=== PATIENT | male | born 1970 | race Caucasian/White ===

== ENCOUNTER → 2016-11-14 | Outpatient (CLI) | payer OTHER ==
[~2016-11-14] MED LIST: AMOXICILLIN500 MG PO; BACTRIM DS 8001 TA1 PO; CLINDAMYCIN HC300 MG PO; FLEXERIL5 MG PO; HYDROCODONE BIT1 T11 PO; MOTRIN800 MG PO; NAPROSYN500 MG PO; NKHM; NORCO 325 MG-51 TAB PO; ROBITUSSIN; ROBITUSSIN AC 10 MG/ PO; ULTRAM50 MG PO; VICODIN ES 7501 TAB PO; ZOFRAN ODT4 MG SL; Zofran4 MG PO
== END | disposition home or self-care (01) ==
LOC: MRI 07:00
DX: Z13.5 Encounter for screening for eye and ear disorders (principal); M22.42 Chondromalacia patellae, left knee; M25.562 Pain in left knee; M70.42 Prepatellar bursitis, left knee

== ENCOUNTER → 2016-12-13 | Outpatient (CLI) | payer OTHER ==
[2016-12-13 19:00] LABS: BASO # 0.1 10*3/uL (0.0-0.1); BASO % 0.7 % (0.0-1.0); EOS # 0.3 10*3/uL (0.0-0.4); EOS % 3.5 % (1.0-4.0); HEMATOCRIT 44.7 % (42.0-52.0); HEMOGLOBIN 14.9 g/dl (14.0-18.0); LYMPH # 2.6 10*3/uL (1.3-4.4); LYMPH % 33.9 % (27.0-41.0); MEAN CELL VOLUME 90.7 fl (80.0-94.0); MEAN CORPUSCULAR HGB 30.2 pg (27.0-31.0); MEAN CORPUSCULAR HGB CONC 33.3 g/dl (33.0-37.0); MEAN PLATELET VOLUME 10.6 fl (9.6-12.3); MONO # 0.5 10*3/uL (0.1-1.0); MONO % 6.8 % (3.0-9.0); NEUT # 4.2 10*3/uL (2.3-7.9); NEUT % 54.8 % (47.0-73.0); PLATELET COUNT AUTOMATED 212 10*3/uL (130-400); RED BLOOD COUNT 4.93 10*6/uL (4.50-5.90); RED CELL DISTRI WIDTH 13.1 % (0-14.5); WHITE BLOOD COUNT 7.6 10*3/uL (4.8-10.8)
[2016-12-13 19:28] LABS: ALBUMIN 4.2 gm/dl (3.1-4.5); BILIRUBIN, TOTAL 0.4 mg/dl (0.2-1.0); POTASSIUM 4.2 mmol/L (3.5-5.1); TOTAL PROTEIN 7.5 gm/dL (6.4-8.2)
== END | disposition home or self-care (01) ==
LOC: LAB 18:18
PROVIDERS: Family Medicine
DX: Z01.818 Encounter for other preprocedural examination (principal); S83.512A Sprain of anterior cruciate ligament of left knee, initial encounter; Z71.6 Tobacco abuse counseling; Z87.891 Personal history of nicotine dependence; X58.XXXA Exposure to other specified factors, initial encounter; Y93.89 Activity, other specified; Y92.89 Other specified places as the place of occurrence of the external cause; Y99.8 Other external cause status

== ENCOUNTER 2018-06-14 15:09 | Emergency (ER) | payer SELFPAY ==
[~2018-06-14] VITALS: Ht 182.8 cm; Wt 102.1 kg
[2018-06-14] MEDS ORDERED: PENICILLIN VK500 MG PO (15:19)
[2018-06-14] MEDS ORDERED: NAPROSYN500 MG PO (15:19)
[2018-06-14] MEDS ORDERED: ZOFRAN4 MG PO (15:19)
[2018-06-14] MEDS ORDERED: Peridex 473 ML473 ML PO (15:19)
== END 2018-06-14 15:27 | disposition home or self-care (01) ==
LOC: ED 15:09
DX: K08.89 Other specified disorders of teeth and supporting structures (principal); R03.0 Elevated blood-pressure reading, without diagnosis of hypertension; F17.200 Nicotine dependence, unspecified, uncomplicated; Z88.1 Allergy status to other antibiotic agents

== ENCOUNTER 2018-11-09 10:15 | Emergency (ER) | payer SELFPAY ==
[~2018-11-09] VITALS: Wt 105.2 kg
[~2018-11-09 10:15] MED LIST changes: +PENICILLIN VK500 MG PO; +Peridex 473 ML473 ML PO; +ZOFRAN4 MG PO
[2018-11-09] MEDS ORDERED: NAPROSYN500 MG PO (11:16)
[2018-12-14] MEDS ORDERED: AMOXICILLIN500 M2 PO (13:23)
[2019-01-25] MEDS ORDERED: PENICILLIN-VK500 MG PO (11:11)
[2019-01-25] MEDS ORDERED: NAPROSYN500 MG PO (11:11)
== END 2018-11-09 11:25 | disposition home or self-care (01) ==
LOC: ED 10:15
DX: S86.912A Strain of unspecified muscle(s) and tendon(s) at lower leg level, left leg, initial encounter (principal); Z88.1 Allergy status to other antibiotic agents; X58.XXXA Exposure to other specified factors, initial encounter; Y93.01 Activity, walking, marching and hiking; Y92.89 Other specified places as the place of occurrence of the external cause; Y99.8 Other external cause status

== ENCOUNTER 2020-02-23 08:29 | Emergency (ER) | payer SELFPAY ==
[~2020-02-23] VITALS: Ht 182.8 cm; Wt 99.8 kg
[~2020-02-23 08:29] MED LIST changes: +AMOXICILLIN500 M2 PO; +PENICILLIN-VK500 MG PO
[2020-02-23] MEDS ORDERED: PRILOSEC20 M1 PO (09:56)
== END 2020-02-23 10:02 | disposition home or self-care (01) ==
LOC: ED 08:29
DX: K29.70 Gastritis, unspecified, without bleeding (principal); K21.9 Gastro-esophageal reflux disease without esophagitis; F17.200 Nicotine dependence, unspecified, uncomplicated; Z88.8 Allergy status to other drugs, medicaments and biological substances

== ENCOUNTER 2020-05-01 13:27 | Emergency (ER) | payer SELFPAY ==
[~2020-05-01] VITALS: Ht 182.8 cm; Wt 99.8 kg
[~2020-05-01 13:27] MED LIST changes: +PRILOSEC20 M1 PO
[2020-05-01 14:14] LABS: BASO % 0.4 % (0.0-1.0); EOS % 0.4 % (1.0-4.0); HEMATOCRIT 44.3 % (42.0-52.0); LYMPH # 0.9 10*3/uL (1.3-4.4); LYMPH % 9.4 % (27.0-41.0); MEAN CELL VOLUME 90.2 fl (80.0-94.0); MEAN CORPUSCULAR HGB 30.3 pg (27.0-31.0); MEAN CORPUSCULAR HGB CONC 33.6 g/dl (33.0-37.0); MEAN PLATELET VOLUME 10.8 fl (9.6-12.3); MONO % 9.9 % (3.0-9.0); NEUT # 7.9 10*3/uL (2.3-7.9); NEUT % 79.3 % (47.0-73.0); PLATELET COUNT AUTOMATED 167 10*3/uL (130-400); RED BLOOD COUNT 4.91 10*6/uL (4.50-5.90); RED CELL DISTRI WIDTH 13.3 % (0-14.5)
[2020-05-01 14:28] LABS: ALBUMIN 3.9 gm/dl (3.1-4.5); ALKALINE PHOSPHATASE 82 U/L (45-117); BUN 14 mg/dl (7-24); CHLORIDE 105 mmol/L (98-107); CREATININE 1.32 mg/dL (0.70-1.30); SGOT/AST 15 IU/L (3-35); SGPT/ALT 37 U/L (12-78); SODIUM 134 mmol/L (136-145); TOTAL PROTEIN 7.9 gm/dL (6.4-8.2)
[2020-05-01] MEDS ORDERED: VALTREX1000 MG PO ×2 (14:51)
[2020-05-01] MEDS ORDERED: CEPHALEXIN500 M1 PO ×2 (14:51)
[2020-05-01] MEDS ORDERED: TYLENOL325 M1 PO ×2 (14:51)
[2020-05-01] MEDS ORDERED: NAPROSYN500 MG PO ×2 (14:51)
== END 2020-05-01 15:24 | disposition home or self-care (01) ==
LOC: ED 13:27
PROVIDERS: Emergency Medicine
DX: B02.9 Zoster without complications (principal); Z88.8 Allergy status to other drugs, medicaments and biological substances; Z79.899 Other long term (current) drug therapy

== ENCOUNTER 2020-05-02 16:03 | Observation (INO) | payer SELFPAY ==
[~2020-05-02] VITALS: Ht 182.8 cm; Wt 101.2 kg
[~2020-05-02 16:03] MED LIST changes: +CEPHALEXIN500 M1 PO; +TYLENOL325 M1 PO; +VALTREX1000 MG PO
[2020-05-02 16:10] VITALS: BP 132/66
[2020-05-02 17:02] LABS: BASO % 0.3 % (0.0-1.0); EOS # 0.1 10*3/uL (0.0-0.4); EOS % 1.6 % (1.0-4.0); HEMATOCRIT 41.9 % (42.0-52.0); LYMPH # 1.1 10*3/uL (1.3-4.4); MEAN CELL VOLUME 92.1 fl (80.0-94.0); MEAN CORPUSCULAR HGB 30.1 pg (27.0-31.0); MEAN CORPUSCULAR HGB CONC 32.7 g/dl (33.0-37.0); MEAN PLATELET VOLUME 10.4 fl (9.6-12.3); MONO # 0.8 10*3/uL (0.1-1.0); MONO % 11.8 % (3.0-9.0); NEUT % 70.7 % (47.0-73.0); PLATELET COUNT AUTOMATED 152 10*3/uL (130-400); RED BLOOD COUNT 4.55 10*6/uL (4.50-5.90); RED CELL DISTRI WIDTH 13.4 % (0-14.5)
[2020-05-02 17:25] LABS: ALBUMIN 3.6 gm/dl (3.1-4.5); ALKALINE PHOSPHATASE 78 U/L (45-117); BUN 14 mg/dl (7-24); CHLORIDE 107 mmol/L (98-107); CREATININE 1.18 mg/dL (0.70-1.30); SGOT/AST 17 IU/L (3-35); SGPT/ALT 41 U/L (12-78); SODIUM 138 mmol/L (136-145); TOTAL PROTEIN 7.2 gm/dL (6.4-8.2)
[2020-05-02 17:27] LABS: TROPONIN I < 0.015 ng/ml (<0.045)
[2020-05-02 18:01] LABS: BILIRUBIN Negative (Negative); BLOOD Negative (Negative); CLARITY Clear (Clear); COLOR Yellow (Yellow); GLUCOSE Negative (Negative); KETONE Negative (Negative); LEUKO ESTERASE Negative (Negative); NITRITE Negative (Negative); SPECIFIC GRAVITY 1.015 (1.001-1.030)
[2020-05-02 18:10] LABS: EPITHELIAL CELLS 0-2; RBC 0-2 rbc/hpf (0-2)
[2020-05-02 21:35] VITALS: BP 138/83
[2020-05-03] VITALS: BP 122/58
[2020-05-03 06:55] LABS: BASO % 0.3 % (0.0-1.0); EOS # 0.2 10*3/uL (0.0-0.4); EOS % 3.3 % (1.0-4.0); LYMPH # 1.6 10*3/uL (1.3-4.4); MEAN CELL VOLUME 90.7 fl (80.0-94.0); MEAN CORPUSCULAR HGB 29.9 pg (27.0-31.0); MEAN CORPUSCULAR HGB CONC 32.9 g/dl (33.0-37.0); MEAN PLATELET VOLUME 11.3 fl (9.6-12.3); MONO # 0.9 10*3/uL (0.1-1.0); NEUT # 3.8 10*3/uL (2.3-7.9); NEUT % 57.9 % (47.0-73.0); PLATELET COUNT AUTOMATED 155 10*3/uL (130-400); RED BLOOD COUNT 4.52 10*6/uL (4.50-5.90); RED CELL DISTRI WIDTH 13.6 % (0-14.5); WHITE BLOOD COUNT 6.6 10*3/uL (4.8-10.8)
[2020-05-03 07:01] LABS: ACT PARTIAL THROMBO TIME 27.8 SECONDS (20.0-32.1)
[2020-05-03 07:05] LABS: ALBUMIN 3.2 gm/dl (3.1-4.5); ALKALINE PHOSPHATASE 70 U/L (45-117); BUN 14 mg/dl (7-24); CHLORIDE 109 mmol/L (98-107); CHOLESTEROL 130 mg/dL (<200); CREATININE 1.18 mg/dL (0.70-1.30); FREE T4 1.05 ng/dl (0.76-1.46); HDL CHOLESTEROL 19 mg/dl (40-60); LDL CHOLESTEROL 71 mg/dL (9-159); POTASSIUM 3.8 mmol/L (3.5-5.1); SGOT/AST 27 IU/L (3-35); SGPT/ALT 40 U/L (12-78); SODIUM 138 mmol/L (136-145); TOTAL PROTEIN 6.7 gm/dL (6.4-8.2); TRIGLYCERIDES 201 mg/dl (<150); VLDL CHOLESTEROL 40 mg/dL (6-40)
[2020-05-03 07:40] LABS: VITAMIN D, 25-HYDROXY 21.6 ng/mL (30-100)
[2020-05-03 08:00] VITALS: BP 133/72
[2020-05-03 12:00] VITALS: BP 136/70
[2020-05-03 16:00] VITALS: BP 141/76
[2020-05-03 20:00] VITALS: BP 121/65
[2020-05-04] VITALS: BP 145/74
[2020-05-04 08:00] VITALS: BP 132/58
[2020-05-04 12:00] VITALS: BP 128/67
[2020-05-04] MEDS ORDERED: NATURE'S BLEND F1 MG PO (12:57)
[2020-05-04] MEDS ORDERED: VITAMIN D350 MC2 PO (12:57)
[2020-05-04] MEDS ORDERED: DOXYCYCLINE100 M3 PO (12:57)
== END 2020-05-04 14:48 | disposition home or self-care (01) ==
LOC: ED 16:03 → EDHOLD 19:20 → 5E 20:50
PROVIDERS: Internal Medicine; Nurse Practitioner; ADMIT Internal Medicine; ATTEND Internal Medicine
DX: L73.9 Follicular disorder, unspecified (principal); R41.3 Other amnesia; R07.89 Other chest pain; F41.9 Anxiety disorder, unspecified; R42 Dizziness and giddiness; E83.41 Hypermagnesemia; D64.9 Anemia, unspecified; D72.810 Lymphocytopenia; L03.811 Cellulitis of head [any part, except face]; F17.210 Nicotine dependence, cigarettes, uncomplicated

== ENCOUNTER 2021-04-06 16:26 | Emergency (ER) | payer SELFPAY ==
[~2021-04-06 16:26] MED LIST changes: +DOXYCYCLINE100 M3 PO; +NATURE'S BLEND F1 MG PO; +VITAMIN D350 MC2 PO
[2021-04-06] MEDS ORDERED: AUGMENTIN 875875 MG PO (19:17)
[2021-04-06] MEDS ORDERED: FLONASE ALLERG9.9 ML NAS (19:17)
== END 2021-04-06 19:30 | disposition home or self-care (01) ==
LOC: ED 16:26
DX: J32.9 Chronic sinusitis, unspecified (principal); F17.200 Nicotine dependence, unspecified, uncomplicated; Z98.890 Other specified postprocedural states; Z79.899 Other long term (current) drug therapy; Z88.1 Allergy status to other antibiotic agents

== ENCOUNTER 2022-02-16 09:05 | Emergency (ER) | payer SELFPAY ==
[~2022-02-16] VITALS: Ht 182.8 cm; Wt 99.3 kg
[~2022-02-16 09:05] MED LIST changes: +AUGMENTIN 875875 MG PO; +FLONASE ALLERG9.9 ML NAS
[2022-02-16] MEDS ORDERED: Ondansetron4 MG PO (09:33)
[2022-02-16 09:41] LABS: BASO % 0.5 % (0.0-1.0); EOS # 0.3 10*3/uL (0.0-0.4); HEMATOCRIT 44.6 % (42.0-52.0); LYMPH # 2.2 10*3/uL (1.3-4.4); LYMPH % 30.2 % (27.0-41.0); MEAN CELL VOLUME 90.8 fl (80.0-94.0); MEAN CORPUSCULAR HGB 30.3 pg (27.0-31.0); MEAN CORPUSCULAR HGB CONC 33.4 g/dl (33.0-37.0); MEAN PLATELET VOLUME 10.8 fl (9.6-12.3); MONO # 0.8 10*3/uL (0.1-1.0); MONO % 10.5 % (3.0-9.0); NEUT % 54.5 % (47.0-73.0); PLATELET COUNT AUTOMATED 187 10*3/uL (130-400); RED BLOOD COUNT 4.91 10*6/uL (4.50-5.90); RED CELL DISTRI WIDTH 13.2 % (0-14.5); WHITE BLOOD COUNT 7.4 10*3/uL (4.8-10.8)
[2022-02-16 10:00] LABS: ALKALINE PHOSPHATASE 113 U/L (45-117); BUN 16 mg/dl (7-24); CHLORIDE 108 mmol/L (98-107); CREATININE 1.29 mg/dL (0.70-1.30); LIPASE 814 U/L (73-393); SGOT/AST 18 IU/L (3-35); SGPT/ALT 23 U/L (12-78); SODIUM 141 mmol/L (136-145); TOTAL PROTEIN 6.8 gm/dL (6.4-8.2)
== END 2022-02-16 11:15 | disposition home or self-care (01) ==
LOC: ED 09:05
PROVIDERS: Emergency Medicine
DX: R11.2 Nausea with vomiting, unspecified (principal); R19.7 Diarrhea, unspecified; Z88.1 Allergy status to other antibiotic agents; Z98.890 Other specified postprocedural states

== ENCOUNTER 2022-02-19 10:02 | Emergency (ER) | payer SELFPAY ==
[~2022-02-19] VITALS: Ht 182.8 cm; Wt 99.3 kg
[~2022-02-19 10:02] MED LIST changes: +Ondansetron4 MG PO
[2022-02-19 11:02] LABS: BASO # 0.1 10*3/uL (0.0-0.1); BASO % 0.7 % (0.0-1.0); EOS # 0.4 10*3/uL (0.0-0.4); EOS % 4.8 % (1.0-4.0); HEMATOCRIT 46.1 % (42.0-52.0); LYMPH % 27.2 % (27.0-41.0); MEAN CELL VOLUME 89.7 fl (80.0-94.0); MEAN CORPUSCULAR HGB 30.2 pg (27.0-31.0); MEAN CORPUSCULAR HGB CONC 33.6 g/dl (33.0-37.0); MEAN PLATELET VOLUME 10.8 fl (9.6-12.3); MONO # 0.7 10*3/uL (0.1-1.0); MONO % 10.1 % (3.0-9.0); NEUT # 4.2 10*3/uL (2.3-7.9); NEUT % 56.9 % (47.0-73.0); PLATELET COUNT AUTOMATED 192 10*3/uL (130-400); RED BLOOD COUNT 5.14 10*6/uL (4.50-5.90); WHITE BLOOD COUNT 7.4 10*3/uL (4.8-10.8)
[2022-02-19 11:18] LABS: ALKALINE PHOSPHATASE 113 U/L (45-117); BUN 15 mg/dl (7-24); CHLORIDE 105 mmol/L (98-107); CREATININE 1.33 mg/dL (0.70-1.30); LIPASE 132 U/L (73-393); SGOT/AST 17 IU/L (3-35); SGPT/ALT 22 U/L (12-78); SODIUM 139 mmol/L (136-145); TOTAL PROTEIN 6.8 gm/dL (6.4-8.2)
[2022-02-19 11:28] LABS: ACT PARTIAL THROMBO TIME 26.9 SECONDS (20.0-32.1)
[2022-02-19 12:11] LABS: BILIRUBIN Negative (Negative); BLOOD Negative (Negative); CLARITY Clear (Clear); COLOR Yellow (Yellow); GLUCOSE Negative (Negative); KETONE Negative (Negative); LEUKO ESTERASE Negative (Negative); NITRITE Negative (Negative); PH 6.5 (4.5-8.0); SPECIFIC GRAVITY 1.015 (1.001-1.030); UROBILINOGEN 0.2 E.U./dl (0.0-1.0)
[2022-02-19 12:19] LABS: RBC 0-2 rbc/hpf (0-2); WBC 0-2 wbc/hpf (0-5)
[2022-02-19] MEDS ORDERED: Motrin,Rufen800 MG PO (13:03)
== END 2022-02-19 13:05 | disposition home or self-care (01) ==
LOC: ED 10:02
PROVIDERS: Emergency Medicine
DX: R53.1 Weakness (principal); B34.9 Viral infection, unspecified; Z98.890 Other specified postprocedural states; Z79.899 Other long term (current) drug therapy; Z88.1 Allergy status to other antibiotic agents

== ENCOUNTER 2022-03-13 08:48 | Emergency (ER) | payer OTHER ==
[~2022-03-13] VITALS: Wt 98.4 kg
[~2022-03-13 08:48] MED LIST changes: +Motrin,Rufen800 MG PO
[2022-03-13] MEDS ORDERED: PREDNISONE10 MG PO (09:33)
[2022-03-13] MEDS ORDERED: CYCLOBENZAPRINE10 MG PO (09:33)
== END 2022-03-13 11:13 | disposition home or self-care (01) ==
LOC: ED 08:48
DX: M54.50 Low back pain, unspecified (principal); F17.200 Nicotine dependence, unspecified, uncomplicated; Z88.1 Allergy status to other antibiotic agents; Z88.8 Allergy status to other drugs, medicaments and biological substances; Z98.890 Other specified postprocedural states; X50.1XXA Overexertion from prolonged static or awkward postures, initial encounter; Y93.89 Activity, other specified; Y92.69 Other specified industrial and construction area as the place of occurrence of the external cause; Y99.0 Civilian activity done for income or pay

== ENCOUNTER 2022-03-16 10:00 | Emergency (ER) | payer OTHER ==
[~2022-03-16] VITALS: Ht 185.4 cm; Wt 98.4 kg
[~2022-03-16 10:00] MED LIST changes: +CYCLOBENZAPRINE10 MG PO; +PREDNISONE10 MG PO
[2022-03-16] MEDS ORDERED: NAPROXEN250 MG PO (10:42)
[2022-03-16] MEDS ORDERED: TYLENOL325 M1 PO (10:42)
== END 2022-03-16 11:18 | disposition home or self-care (01) ==
LOC: ED 10:00
DX: S39.92XA Unspecified injury of lower back, initial encounter (principal); Z88.1 Allergy status to other antibiotic agents; Z98.890 Other specified postprocedural states; F17.210 Nicotine dependence, cigarettes, uncomplicated; X58.XXXA Exposure to other specified factors, initial encounter; Y93.89 Activity, other specified; Y92.89 Other specified places as the place of occurrence of the external cause; Y99.8 Other external cause status

== ENCOUNTER 2023-02-01 17:35 | Emergency (ER) | payer SELFPAY ==
[~2023-02-01 17:35] MED LIST changes: +NAPROXEN250 MG PO
[2023-02-01] MEDS ORDERED: TRAMADOL HCL50 MG PO (18:28)
[2023-02-01] MEDS ORDERED: SEPTDS PO (18:28)
== END 2023-02-01 18:46 | disposition home or self-care (01) ==
LOC: ED 17:35
DX: S91.331A Puncture wound without foreign body, right foot, initial encounter (principal); F17.200 Nicotine dependence, unspecified, uncomplicated; Z88.1 Allergy status to other antibiotic agents; Z79.899 Other long term (current) drug therapy; Z98.890 Other specified postprocedural states; W22.8XXA Striking against or struck by other objects, initial encounter; Y93.89 Activity, other specified; Y92.89 Other specified places as the place of occurrence of the external cause; Y99.8 Other external cause status

== ENCOUNTER 2023-12-11 10:20 | Emergency (ER) | payer SELFPAY ==
[~2023-12-11] VITALS: Ht 182.8 cm; Wt 97.5 kg
[~2023-12-11 10:20] MED LIST changes: +SEPTDS PO; +TRAMADOL HCL50 MG PO
[2023-12-11 11:02] LABS: BASO # 0.1 10*3/uL (0.0-0.1); BASO % 0.6 % (0.0-1.0); EOS # 0.4 10*3/uL (0.0-0.4); LYMPH # 2.2 10*3/uL (1.3-4.4); LYMPH % 24.4 % (27.0-41.0); MEAN CELL VOLUME 90.9 fl (80.0-94.0); MEAN CORPUSCULAR HGB 30.9 pg (27.0-31.0); MEAN PLATELET VOLUME 10.4 fl (9.6-12.3); MONO # 0.9 10*3/uL (0.1-1.0); MONO % 10.1 % (3.0-9.0); NEUT # 5.5 10*3/uL (2.3-7.9); NEUT % 60.6 % (47.0-73.0); PLATELET COUNT AUTOMATED 201 10*3/uL (130-400); RED BLOOD COUNT 4.95 10*6/uL (4.50-5.90); RED CELL DISTRI WIDTH 12.9 % (0-14.5)
[2023-12-11 11:28] LABS: ALKALINE PHOSPHATASE 97 U/L (46-116); BUN 13 mg/dl (9-23); CHLORIDE 105 mmol/L (98-107); POTASSIUM 4.1 mmol/L (3.4-5.1); SGPT/ALT 12 U/L (5-49); TOTAL PROTEIN 7.1 gm/dL (6.0-8.0)
== END 2023-12-11 13:20 | disposition home or self-care (01) ==
LOC: ED 10:20
PROVIDERS: Internal Medicine
DX: K40.90 Unilateral inguinal hernia, without obstruction or gangrene, not specified as recurrent (principal); R11.2 Nausea with vomiting, unspecified; F17.200 Nicotine dependence, unspecified, uncomplicated; Z79.2 Long term (current) use of antibiotics; Z79.899 Other long term (current) drug therapy; Z98.890 Other specified postprocedural states

== ENCOUNTER 2024-01-10 18:47 | Emergency (ER) | payer SELFPAY ==
[~2024-01-10] VITALS: Wt 93.0 kg
[2024-01-10 19:42] LABS: BILIRUBIN Negative (Negative); BLOOD 3+ (Negative); CLARITY Clear (Clear); COLOR Yellow (Yellow); GLUCOSE Negative (Negative); KETONE Trace (Negative); LEUKO ESTERASE Negative (Negative); NITRITE Negative (Negative); PH 5.5 (4.5-8.0); SPECIFIC GRAVITY 1.025 (1.001-1.030)
[2024-01-10 19:51] LABS: MUCOUS 1+; RBC 51-100 rbc/hpf (0-2)
[2024-01-10] MEDS ORDERED: Ondansetron Hydrochloride 4 MG/2 ML VIAL IV ONE (19:55)
[2024-01-10] MEDS ORDERED: Tamsulosin Hydrochloride 0.4 MG CAP PO ONE (19:55)
[2024-01-10] MEDS ORDERED: Ketorolac Tromethamine 30 MG/ML VIAL IV ONE (19:55)
[2024-01-10] MEDS ORDERED: Ondansetron4 MG PO (21:14)
[2024-01-10] MEDS ORDERED: FLOMAX0.4 MG PO (21:14)
[2024-01-10] MEDS ORDERED: HYDROCODONE-AC1 EAC1 PO (21:14)
== END 2024-01-10 21:19 | disposition home or self-care (01) ==
LOC: ED 18:47
PROVIDERS: Internal Medicine
DX: N20.9 Urinary calculus, unspecified (principal); K21.9 Gastro-esophageal reflux disease without esophagitis; Z88.1 Allergy status to other antibiotic agents; Z88.8 Allergy status to other drugs, medicaments and biological substances; Z98.890 Other specified postprocedural states

== ENCOUNTER 2024-01-14 12:14 | Emergency (ER) | payer SELFPAY ==
[~2024-01-14] VITALS: Ht 182.8 cm; Wt 97.5 kg
[~2024-01-14 12:14] MED LIST changes: +FLOMAX0.4 MG PO; +HYDROCODONE-AC1 EAC1 PO
[2024-01-14] MEDS ORDERED: Acetaminophen/Hydrocodone 5 MG/325 MG TABLET PO ONE (12:40)
[2024-01-14 12:51] LABS: BASO % 0.4 % (0.0-1.0); EOS # 0.3 10*3/uL (0.0-0.4); EOS % 3.2 % (1.0-4.0); HEMATOCRIT 40.4 % (42.0-52.0); LYMPH # 1.6 10*3/uL (1.3-4.4); LYMPH % 19.8 % (27.0-41.0); MEAN CELL VOLUME 92.7 fl (80.0-94.0); MEAN CORPUSCULAR HGB 30.5 pg (27.0-31.0); MEAN CORPUSCULAR HGB CONC 32.9 g/dl (33.0-37.0); MEAN PLATELET VOLUME 10.5 fl (9.6-12.3); MONO # 0.7 10*3/uL (0.1-1.0); NEUT # 5.6 10*3/uL (2.3-7.9); NEUT % 67.2 % (47.0-73.0); PLATELET COUNT AUTOMATED 196 10*3/uL (130-400); RED BLOOD COUNT 4.36 10*6/uL (4.50-5.90); RED CELL DISTRI WIDTH 13.1 % (0-14.5); WHITE BLOOD COUNT 8.3 10*3/uL (4.8-10.8)
[2024-01-14 13:18] LABS: BILIRUBIN Negative (Negative); CLARITY Clear (Clear); COLOR Yellow (Yellow); GLUCOSE Negative (Negative); KETONE Negative (Negative); SPECIFIC GRAVITY 1.015 (1.001-1.030)
[2024-01-14 13:19] LABS: BLOOD Trace-Lysed (Negative); LEUKO ESTERASE Negative (Negative); NITRITE Negative (Negative); UROBILINOGEN 0.2 E.U./dl (0.0-1.0)
[2024-01-14 13:26] LABS: ALKALINE PHOSPHATASE 80 U/L (46-116); BUN 10 mg/dl (9-23); CHLORIDE 107 mmol/L (98-107); LIPASE 30 U/L (12-53); POTASSIUM 3.9 mmol/L (3.4-5.1); SGPT/ALT 8 U/L (5-49); TOTAL PROTEIN 6.4 gm/dL (6.0-8.0)
[2024-01-14 13:39] LABS: EPITHELIAL CELLS 0-2
== END 2024-01-14 17:47 | disposition home or self-care (01) ==
LOC: ED 12:14
PROVIDERS: Nurse Practitioner
DX: K40.90 Unilateral inguinal hernia, without obstruction or gangrene, not specified as recurrent (principal); F17.200 Nicotine dependence, unspecified, uncomplicated; Z87.442 Personal history of urinary calculi; Z88.1 Allergy status to other antibiotic agents; Z79.899 Other long term (current) drug therapy; Z98.890 Other specified postprocedural states

== ENCOUNTER 2024-05-19 12:38 | Emergency (ER) | payer SELFPAY ==
[~2024-05-19] VITALS: Ht 182.8 cm; Wt 102.1 kg
[2024-05-19] MEDS ORDERED: Ondansetron Hydrochloride 4 MG/2 ML VIAL IV ONE (13:00)
[2024-05-19] MEDS ORDERED: SODIUM CHLORIDE 0.9% 1,000 ML IV ONE (13:00)
[2024-05-19 13:19] LABS: BASO % 0.6 % (0.0-1.0); EOS # 0.3 10*3/uL (0.0-0.4); EOS % 4.7 % (1.0-4.0); HEMATOCRIT 42.6 % (42.0-52.0); LYMPH # 1.8 10*3/uL (1.3-4.4); LYMPH % 25.8 % (27.0-41.0); MEAN CELL VOLUME 93.8 fl (80.0-94.0); MEAN CORPUSCULAR HGB 30.8 pg (27.0-31.0); MEAN CORPUSCULAR HGB CONC 32.9 g/dl (33.0-37.0); MEAN PLATELET VOLUME 10.6 fl (9.6-12.3); MONO # 0.6 10*3/uL (0.1-1.0); MONO % 8.3 % (3.0-9.0); NEUT # 4.3 10*3/uL (2.3-7.9); NEUT % 60.5 % (47.0-73.0); PLATELET COUNT AUTOMATED 172 10*3/uL (130-400); RED BLOOD COUNT 4.54 10*6/uL (4.50-5.90); RED CELL DISTRI WIDTH 13.1 % (0-14.5)
[2024-05-19 13:41] LABS: ALKALINE PHOSPHATASE 99 U/L (46-116); BUN 12 mg/dl (9-23); CHLORIDE 108 mmol/L (98-107); POTASSIUM 3.7 mmol/L (3.4-5.1); SGPT/ALT 15 U/L (5-49); TOTAL PROTEIN 6.4 gm/dL (6.0-8.0)
[2024-05-19] MEDS ORDERED: IOHEXOL 300 MG/ML 100 ML VIAL IV ONE (13:50)
[2024-05-19 14:13] LABS: BILIRUBIN Negative (Negative); BLOOD Negative (Negative); CLARITY Clear (Clear); COLOR Yellow (Yellow); GLUCOSE Negative (Negative); KETONE Trace (Negative); LEUKO ESTERASE Negative (Negative); NITRITE Negative (Negative); PH 5.5 (4.5-8.0); SPECIFIC GRAVITY >= 1.030 (1.001-1.030); UROBILINOGEN 0.2 E.U./dl (0.0-1.0)
[2024-05-19 14:22] LABS: EPITHELIAL CELLS 0-2; MUCOUS 3+; RBC 0-2 rbc/hpf (0-2)
== END 2024-05-19 16:43 | disposition home or self-care (01) ==
LOC: ED 12:38
PROVIDERS: Nurse Practitioner
DX: K52.9 Noninfective gastroenteritis and colitis, unspecified (principal); B34.9 Viral infection, unspecified; K21.9 Gastro-esophageal reflux disease without esophagitis; F17.290 Nicotine dependence, other tobacco product, uncomplicated; Z88.1 Allergy status to other antibiotic agents; Z88.8 Allergy status to other drugs, medicaments and biological substances; Z98.890 Other specified postprocedural states

== ENCOUNTER 2024-08-16 19:48 | Emergency (ER) | payer SELFPAY ==
[2024-08-16] MEDS ORDERED: IBUPROFEN 800 MG TAB PO ONE (20:05)
[2024-08-16] MEDS ORDERED: TAMIFLU 75MG CA75 MG PO (21:51)
[2024-08-16] MEDS ORDERED: Oseltamivir Phosphate 75 MG CAP PO ONE (21:55)
== END 2024-08-16 22:12 | disposition home or self-care (01) ==
LOC: ED 19:48
DX: J10.1 Influenza due to other identified influenza virus with other respiratory manifestations (principal); Z20.822 Contact with and (suspected) exposure to COVID-19; K21.9 Gastro-esophageal reflux disease without esophagitis; Z88.1 Allergy status to other antibiotic agents; Z88.8 Allergy status to other drugs, medicaments and biological substances; Z98.890 Other specified postprocedural states